=== PATIENT | female | born 1995 | race Caucasian/White ===

== ENCOUNTER 2017-05-28 11:01 | Emergency (ER) | payer OTHER ==
[~2017-05-28] VITALS: Ht 170.2 cm; Wt 92.3 kg
[2017-05-28] MEDS ORDERED: MORPHINE 2 MG/ML 1ML SYRINGE IV ONE (12:15)
[2017-05-28] MEDS ORDERED: NS 1,000 ML IV ONE (12:15)
[2017-05-28] MEDS ORDERED: ONDANSETRON 4MG/2ML VIAL (J2405) IV ONE (12:15)
[2017-05-28 12:21] LABS: CONTROL LINE UCG INT CTR LINE PRESENT
[2017-05-28 12:34] LABS: MEAN CORPUSCULAR HGB CONC 33.1 g/dl (32.0-36.5); MEAN CORPUSCULAR VOLUME 87.8 fl (80.0-96.0); PLATELET COUNT, AUTOMATED 334 10^3/uL (150-450); RED CELL DISTRIBUTION WIDTH 12.6 % (11.5-14.5); WHITE BLOOD COUNT 11.2 10^3/uL (4.0-10.0)
[2017-05-28 13:06] LABS: ALBUMIN/GLOBULIN RATIO 0.93 (1.00-1.93); ALKALINE PHOSPHATASE 70 U/L (45-117); ALT/SGPT 28 U/L (12-78); ANION GAP 10 MEQ/L (8-16); AST/SGOT 20 U/L (7-37); BILIRUBIN,DIRECT 0.1 MG/DL (0.0-0.2); BILIRUBIN,TOTAL 0.6 MG/DL (0.2-1.0); BLOOD UREA NITROGEN 7 MG/DL (7-18); CALCIUM LEVEL 8.9 MG/DL (8.5-10.1); CARBON DIOXIDE LEVEL 24 MEQ/L (21-32); CHLORIDE LEVEL 105 MEQ/L (98-107); CREATININE FOR GFR 0.84 MG/DL (0.55-1.02); GLOMERULAR FILTRATION RATE > 60.0 (>60); GLUCOSE, FASTING 90 MG/DL (70-105); POTASSIUM SERUM 3.4 MEQ/L (3.5-5.1); SODIUM LEVEL 139 MEQ/L (136-145); TOTAL PROTEIN 8.3 GM/DL (6.4-8.2)
[2017-05-28 13:11] LABS: ADD MANUAL DIFFER YES; DIFF SLIDE NUMBER 115; POSITIVE MORPH POS FLAG
[2017-05-28] MEDS ORDERED: POTASSIUM CHLORIDE 10 MEQ SR TABLET PO ONE (13:15)
[2017-05-28] MEDS ORDERED: CIPROFLOXACIN 500 MG TAB PO ONE (13:45)
[2017-05-28] MEDS ORDERED: CIPR-249 PO (13:46)
[2017-05-28 14:00] VITALS: BP 146/92
--- NOTE | 2017-05-28 14:11 | REP ---
REASON FOR EXAM: Right lower quadrant pain. PRIORS: None. The lack of intravenous contrast decreases the sensitivity of the exam. The lung bases are clear. Limited evaluation of the solid intra-abdominal organs show no gross abnormalities. There is cholelithiasis. Limited evaluation of the pancreas, adrenal glands, and kidneys show no gross abnormalities. Limited evaluation of the abdominal aorta and para-aortic regions show no gross abnormalities. Limited evaluation of the bowel loops and their mesenteries show no abnormalities. The appendix is well visualized and it is within normal limits. There is no free fluid or free air seen in the abdomen or pelvis. There is no evidence of an intra-abdominal or intrapelvic mass or adenopathy. Bone window technique through the examination shows the osseous structures to be within normal limits. IMPRESSION: Cholelithiasis. Signed by Matt Borja DO 05/28/2017 02:19 P
== END 2017-05-28 14:55 | disposition home or self-care (01) ==
LOC: M ED 11:01
DX: K80.20 Calculus of gallbladder without cholecystitis without obstruction (principal); N39.0 Urinary tract infection, site not specified; Z72.0 Tobacco use
CPT/HCPCS: 74176; 80048; 80076; 81001; 83690; 84703; 85025; 87088; 87186; 96361; 96374; 96375; 99284; J2405